=== PATIENT | female | born 1950 | race African-American/Black ===

== ENCOUNTER 2019-10-28 09:22 | Outpatient (CLI) | payer BC, SELFPAY ==
--- NOTE | ~2019-10-28 | MR_ITS ---
EXAMINATION: MR brain/brain stem wo con DATE: 10/28/2019 11:13 INDICATION: 3 weeks of loss of taste and smell. TECHNIQUE: Magnetic resonance imaging (MRI) of the brain and brainstem was performed without intraven ous contrast. Sequences included sagittal and axial T1-weighted SE, axial diffusion-weighted FS SE, a xial T2*-weighted GRE, axial T2-weighted FLAIR, and axial T2-weighted FSE. Apparent diffusion coeffic ient (ADC) maps were created. COMPARISON: None. FINDINGS: There are no areas of restricted diffusion to suggest acute infarction. No intracranial hemorrhage or abnormal intracranial mass lesion. There are scattered areas of nonspecific increased T2-weighted si gnal intensity in the cerebral white matter, predominantly involving the deep and periventricular whi te matter which is within normal limits for age and likely sequela of chronic small vessel ischemic d isease. There are no intraparenchymal signal abnormalities seen on the other pulse sequences. Symmetr ic prominence of the sulci consistent with mild age-appropriate diffuse cerebral volume loss. The ve ntricles are symmetric and normal in size. There are no abnormal extra-axial fluid collections. Flow voids are seen in the cerebral arteries on the T2-weighted sequences consistent with their expected p atency. Moderate mucosal thickening and small amount of dependently layering mucus in the left maxill ya sinus. Mild mucoperiosteal thickening in the right maxillary and bilateral ethmoid and sphenoid s inuses. Visualized orbits and soft tissues are unremarkable. IMPRESSION: 1. No acute intracranial process. 2. Age-related changes including mild diffuse volume loss and mild scattered nonspecific periventricu lar predominant white matter T2 hyperintensity consistent with chronic small vessel ischemic disease. 3. Moderate mucosal thickening and layering mucus in the left maxillary sinus. Correlate clinically f or acute sinusitis. Reviewed, dictated and finalized at location A. IMPRESSION: 1. No acute intracranial process. 2. Age-related changes including mild diffuse volume loss and mild scattered no nspecific periventricular predominant white matter T2 hyperintensity consistent with chronic small vessel ischemic disease. 3. Moderate mucosal thickening and layering mucus in the left maxillary sinus. Correlate clinically for acute sinusitis.
[2019-10-28 10:06] LABS: Estimated Glomerular Filt Rate 20
== END 2019-10-28 09:23 | disposition home or self-care (01) ==
PROVIDERS: PCP Physician Assistant; Visit Provider Otolaryngology
DX: R43.0 Anosmia (principal); J32.0 Chronic maxillary sinusitis
CPT/HCPCS: 36415; 70551

== ENCOUNTER → 2021-05-06 10:47 | Outpatient (CLI) | payer BC, SELFPAY ==
--- NOTE | ~2021-05-06 | MM_ITS ---
EXAMINATION: MM screening yovani BI w adela HISTORY: Screening mammogram TECHNIQUE: Craniocaudal and mediolateral oblique 3-D tomosynthesis images were obtained and synthetic 2-D images were generated. CAD analysis was submitted and interpreted. COMPARISON: 03/26/2019, 07/20/2017, 07/05/2016 bilateral digital screening mammogram examinations. BREAST PARENCHYMAL COMPOSITION: There are scattered areas of fibroglandular density. FINDINGS: 6 mm irregular opacity is noted anteriorly in the outer mid left breast. Diagnostic left ma mmogram and left breast ultrasound examination are recommended. Otherwise there is no evidence of suspicious mass, calcification, or architectural distortion to sugg est malignancy in either breast. There has been no other suspicious interval change. IMPRESSION: 1. 6 mm irregular opacity in the anterior outer mid left breast 2. Diagnostic left mammogram and left breast ultrasound are recommended BI-RADS Category 0: Incomplete: Needs additional imaging evaluation. Reviewed, dictated and finalized at location A.
== END ==
PROVIDERS: PCP Physician Assistant; Visit Provider Physician Assistant
DX: Z12.31 Encounter for screening mammogram for malignant neoplasm of breast (principal); R92.8 Other abnormal and inconclusive findings on diagnostic imaging of breast
CPT/HCPCS: 77063; 77067

== ENCOUNTER → 2021-06-09 08:33 | Outpatient (CLI) | payer BC, SELFPAY ==
--- NOTE | ~2021-06-09 | MMUS_ITS ---
EXAMINATION: MM diagnostic yovani LT w adela, US breast LT limited HISTORY: 6 mm irregular opacity in the anterior outer mid left breast reported on 05/06/2021 screenin g mammogram TECHNIQUE: Additional 3-D tomosynthesis images of the left breast were performed and synthetic 2-D im ages were generated. CAD analysis was submitted and interpreted. High resolution left upper outer and lower outer quadrant breast ultrasound was performed. COMPARISON: 04/28/2021 bilateral screening mammogram FINDINGS: MAMMOGRAPHIC FINDINGS: An irregular approximately 5 mm mass is again noted in the lower outer left breast. ULTRASOUND: Left breast 4:00 4 cm from nipple: There is an irregular hypoechoic approximately 4.5 x 5.2 mm mass w hich corresponds approximately to the mammographic finding. No vascularity is identified within the l esion on color flow imaging. Mild posterior shadowing is suggested. Ultrasound-guided biopsy is recom mended. IMPRESSION: 1. Irregular 5.2 mm mass at 4:00 4 cm from nipple 2. Ultrasound-guided biopsy is recommended BI-RADS category 4, suspicious findings. Dr. Loyola telephoned the report and ultrasound-guided biopsy recommendation on 06/09/20[address] Quiroga. Reviewed, dictated and finalized at location A. MAKING REHABILITATION CONSULTANT IMPRESSION: 1. Irregular 5.2 mm mass at 4:00 4 cm from nipple 2. Ultrasound-guided biopsy is recommended BI-RADS category 4, suspicious findings. Dr. Loyola telephoned the report and ultrasound-guided biopsy recommendation on 08/10/[address] Quiroga.
== END ==
PROVIDERS: PCP Physician Assistant; Visit Provider Physician Assistant
DX: R92.8 Other abnormal and inconclusive findings on diagnostic imaging of breast (principal)
CPT/HCPCS: 76642; 77061; 77065; G0279

== ENCOUNTER 2021-06-24 09:44 | Outpatient (CLI) | payer BC, SELFPAY ==
--- NOTE | ~2021-06-24 | MMUS_ITS ---
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 Timeout procedure was performed. After sterile preparation of the left breas t, 1% lidocaine was utilized for local anesthesia. A 14G spring-loaded biopsy gun needle was advanced to the edge of the region of interest from a later al approach utilizing sonographic guidance. A total of three tissue core samples were obtained throu gh the lesion. An Inrad tissue marker clip was then placed at the biopsy site. Hemostasis was achiev ed. A sterile bandage was applied. The patient tolerated procedure well and there was no evidence of immediate complication. The patien t was given verbal instructions prior to departing from the department. A two view mammogram was perf ormed to document tissue marker clip placement. The tissue samples were submitted to surgical patholo gy for histologic analysis. IMPRESSION: 1. Successful ultrasound guided biopsy of left 4:00 breast mass with biopsy marker placement. Please refer to pathology report for histologic analysis. Reviewed, dictated and finalized at Location A. Reviewed, dictated and finalized at location A. C [employer]ER[employer] IMPRESSION: 1. Successful ultrasound guided biopsy of left 4:00 breast mass with biopsy ma rker placement. Please refer to pathology report for histologic analysis.
== END 2021-06-24 09:45 | disposition home or self-care (01) ==
PROVIDERS: PCP Physician Assistant; Visit Provider Physician Assistant
DX: R92.8 Other abnormal and inconclusive findings on diagnostic imaging of breast (principal)
CPT/HCPCS: 19083; 88305; A4648

== ENCOUNTER 2021-08-26 07:59 | Outpatient (CLI) | payer BC, SELFPAY ==
--- NOTE | 2021-08-26 08:18 | ECG_ITS ---
Measurements Intervals [place] Rate: 89 P: 59 UT: 178 QRS: -41 QRSD: 124 T: 67 QT: 383 QTc: 467 Interpretive Statements SINUS RHYTHM LEFT AXIS DEVIATION INTRAVENTRICULAR CONDUCTION DELAY LEFT VENTRICULAR HYPERTROPHY AND ST-T CHANGE BASELINE ARTIFACT- I, II, III, AVR, AVL, AVF, V1-V2 BORDERLINE ECG Electronically Signed On 08-26-2021 9:02:13 CHEMICAL RESEARCH WORKER by Az Blake D.O.
[2021-08-26 09:02] LABS: Basophils Percent Auto 0.3 % (0.2-1.2); Eosinophils Absolute Auto 0.1 K/mm3 (0-0.3); Eosinophils Percent Auto 2.2 % (0-4.4); Hematocrit 29.3 % (37.0-47.0); Hemoglobin 9.3 g/dL (12.0-15.0); Immature Granulocyte Absolute 0.03 K/mm3 (0.00-0.031); Immature Granulocyte Percent A 0.5 % (0-0.5); Lymphocytes Absolute Auto 1.63 K/mm3 (0.9-3.2); Lymphocytes Percent Auto 27.3 % (18.3-44.2); Mean Corpuscular HGB Conc 31.7 g/dl (32-36); Mean Corpuscular Hemoglobin 26.8 pg (26-34); Mean Corpuscular Volume 84.4 fl (80-100); Mean Platelet Volume 9.4 fl (7.4-10.4); Monocytes Absolute Auto 0.4 K/mm3 (0.1-0.6); Neutrophils Absolute Auto 3.8 K/mm3 (1.3-6.7); Neutrophils Percent Auto 63.7 % (45.5-73.1); Platelet Count Result 209 k/mm3 (150-375); Red Blood Count 3.47 M/mm3 (4.2-5.4); Red Cell Distribution Width 15.4 % (11.5-14.5)
[2021-08-26 09:19] LABS: Anion Gap 10 mmol/L (8-16); Blood Urea Nitrogen 28 mg/dL (7-17); Calcium 8.8 mg/dL (8.4-10.2); Carbon Dioxide 26 mmol/L (22-30); Chloride 103 mmol/L (98-107); Estimated Glomerular Filt Rate 34; Glucose 174 mg/dL (65-110); Potassium 3.1 mmol/L (3.4-5.0); Sodium 139 mmol/L (137-145)
[2021-08-26 12:44] LABS: Anisocytosis 1+ (NORMAL); Hypochromasia 1+ (NORMAL); Platelet Estimate Adequate (Adequate); Poikilocytosis 1+ (NORMAL)
== END 2021-08-26 08:00 | disposition home or self-care (01) ==
PROVIDERS: PCP Physician Assistant; Visit Provider Surgery
DX: D24.2 Benign neoplasm of left breast (principal); E11.9 Type 2 diabetes mellitus without complications; Z01.818 Encounter for other preprocedural examination; I45.9 Conduction disorder, unspecified
CPT/HCPCS: 36415; 80048; 85025; 93005

== ENCOUNTER 2021-08-30 00:33 | Day surgery (SDC) | payer BC, SELFPAY ==
[2021-08-19 14:25] VITALS: BMI 35.0
--- NOTE | 2021-08-19 14:29 | PC.NURSE ---
Report to the Outpatient Waiting Room, entrance under the green pavilion located off [facility], at time _0830_ on date _08/30/21_. NEEDLE LOCALIZATION TIME _0930_, OR Time: _1200__. - You will be asked a series of questions to screen for COVID 19 for your protection. - A mask is required within the hospital. - No visitors are allowed at this time. Preoperative COVID Testing Requirements: NONE Patients may have clear liquids (water, carbonated beverages, clear teas, apple juice) until 3 hours prior to surgery (0900 AM) with a maximum of 20 ounces. - No food from midnight until time of surgery Take the following medications with a SIP of water the morning of surgery: __TYLENOL IF NEED FOR PAIN___ Medications to discontinue per DR. CORTES - _ALLOPURINOL 7 DAYS PRIOR TO SURGERY LAST DOSE TO BE TAKEN ON 08/22/21, MELOXICAM 5 DAYS PRIOR TO SURGERY, LAST DOSE TO BE TAKEN ON 08/24/21__ Please no make-up, nail italian, hairspray, perfume, deodorant, or body powder the day of surgery. No jewelry (including any body piercings) or valuables the day of surgery, leave them at home. Please take a shower or bath the night before, or the morning of, surgery with an antibacterial soap. Wear comfortable, loose fitting clothing. - Jewelry must be removed prior to entering the operating room. Rings and piercings that are not removed may be cut off. - The hospital will not accept responsibility for valuables. - Please leave all valuables, including medications, at home the day of surgery. If you are going home after surgery, a licensed water taxi driver must drive you home. - NO public transportation without another adult. - We recommend that an adult stay with you for 24 hours following discharge. - We also recommend that you do not drive, make important decision, drink alcoholic beverages, or take any drugs that were not prescribed by your health care provider for at least 24 hours after your discharge time. Follow any additional instructions given to you from your surgeon. KIRSTEN SHOWER AM OF SURGERY Telephone instructions given to ____PT and asked if any additional questions and then verbalized understanding. Patient advised to call surgeon office or pre surgery nurse liaisonTUCKER [phone] if any additional questions.
--- NOTE | 2021-08-29 19:15 | PM.HPGS ---
History of Present Illness History of Present Illness Consent: Risks, benefits, and alternatives have been discussed and questions answered. Patient agrees to proceed with procedure. Chief complaint: left breast intraductal papilloma Narrative: Acacia Pires is a 71 year old black female that presented one month ago to the office at the request of Leelee Quiroga PA-C for an evaluation after abnormal breast imaging. Patient had a screening mammogram on 05/06/21 at [facility] that showed a 6 mm irregular opacity in the anterior outer mid left breast BIRAD 0. Patient then had a left breast diagnostic mammogram and ultrasound at [facility] on 06/09/21 that showed an irregular 5.2 mm mass at the 4 O'clock position 4 cm from the nipple. It was rated as a BIRDAS 4 type lesion. Patient then underwent a left breast ultrasound guided core biopsy at [facility] on 06/24/21 that showed this area appeared on path to be consistent with an intraductal papillary proliferation. Patient reports that she cannot feel any mass or abnormality of either of her breasts. She denies any pain or nipple discharge. She does not do self breast exams regularly. She reports that her sister had breast cancer at age 60, had treatment and she is still living. Pt. denies any other family history of breast problems. No breaast problems for her mother. Her mother passed at the age of 43. She herself has given to 3 children children with her first being delivered when she was 17 years old. She reports one of her children is female, she reports no breast issues for her daughter. She does reports she has a history of psoriasis, and she sees a graphic design professor for this . She is unsure of the physicians name. She does also have a history of gout and takes medication for this daily. Review of Systems Review of Systems: All systems reviewed & are unremarkable except as noted in HPI and below (HPI) Constitutional: Constitutional: Reports as per HPI, Denies chills and Denies fever(s) Eyes: Eyes: Reports no additional eye complaints ENT: Reports Normal hearing present and Denies dizziness Cardiovascular: Cardiovascular: Reports no additional cardiovascular complaints, Denies chest pain and Denies irregular heart rhythm Comments: History of Obesity and HTN. Respiratory: Respiratory: Reports no additional respiratory complaints Gastrointestinal: Gastrointestinal: Reports no additional gastrointestinal complaints, Denies abdominal pain and Denies bloating Genitourinary: Genitourinary: Denies hematuria Comments: G3,P3, AB 0 Musculoskeletal: Musculoskeletal: Denies back pain Comments: Hx of gout on Allopurinol history of air thrice taking acetaminophen and Meloxicam. Integumentary/Breasts: Skin/Breast: Reports system reviewed and no additional complaints, except as docu Comments: No previous history of breast biopsy or breast problems. Neurologic: Reports Normal hearing present, Denies Abnormal speech present, Denies confusion and Denies dizziness Psychiatric: Psychiatric: Reports no additional psychiatric complaints and Denies confusion Endocrine: Endocrine: Reports no additional endocrine complaints Comments: History of type 2 diabetes on Glimepiride Hematologic/Lymphatic: Hematologic/Lymphatic: Denies easy bleeding and Denies easy bruising Allergic/Immunologic: Allergic/Immunologic: Reports no additional allergic/immunologic complaints [facility] Past Medical History Medical History (Updated 08/29/21 @ 19:30 by Dennis Patel MD) Asthma Hypertension Type II diabetes mellitus (Unknown) Surgical History Surgical History (Updated 07/28/21 @ 09:33 by Nicolas Rodgers MA) No history of previous surgery Family History Family History (Updated 07/28/21 @ 09:23 by Nicolas Rodgers MA) Father Cancer Mother Heart failure Other Hypertension Social History Social History (Updated 08/30/21 @ 10:35 by Dennis Pinzon
--- NOTE | ~2021-08-30 | MM_ITS ---
MM surgical specimen LT DATE: 08/30/2021 13:33 INDICATION: Surgical excision of left breast biopsy marker TECHNIQUE: Single noncompression digital mammographic exposure of surgical soft tissue specimen COMPARISON: 06/24/2021 left breast postbiopsy mammogram 08/30/2021 left breast preoperative wire localization images FINDINGS: The biopsy marker and wire are present within the surgical soft tissue specimen. IMPRESSION: Successful surgical excision of biopsy marker Reviewed, dictated and finalized at Location A. Reviewed, dictated and finalized at location A. H OPERATOR
--- NOTE | ~2021-08-30 | MM_ITS ---
MM needle loc DATE: 08/30/2021 10:14 INDICATION: Preoperative mammographically guided wire localization of lower outer quadrant left breas t marker TECHNIQUE: The purpose of the procedure, technique and potential complications were discussed with th e patient. The patient indicated understanding and gave consent. The left breast was placed in lateral medial compression with biopsy grid apparatus over the lateral aspect of left breast. Using alpha and numeric cordis on the biopsy grid, a [place] Mammal[facility] 7 cm Was placed percutaneously toward the biopsy marker following sterile preparation of the skin. Additio nal lateral medial exposures were made during adjustment of the needle to the appropriate position. Subsequently, craniocaudal extent both measures were utilized to adjust the needle to the proper dept h. The guidewire was then placed through the tip of the needle. Craniocaudal exposures confirmed prop er position and depth of the wire. The needle was then withdrawn. Final craniocaudal and MLO exposures reveal the wire immediately adjacent to the biopsy marker. The patient tolerated the procedure very well, without complaint or complication. COMPARISON: 06/24/2021 post biopsy mammogram IMPRESSION: Successful mammographically guided percutaneous wire placement at biopsy marker in the lo wer outer left breast Reviewed, dictated and finalized at Location A. Reviewed, dictated and finalized at location A. S REPRESENTATIVE SUPERVISOR IMPRESSION: Successful mammographically guided percutaneous wire placement at b iopsy marker in the lower outer left breast
[2021-08-30 08:36] VITALS: BP 151/71; PULSE 77; RESP 18; TEMP 36.3; O2SAT 99
[2021-08-30 08:50] LABS: Glucose Point of Care 100 mg/dl (65-105)
--- NOTE | 2021-08-30 09:40 | SUR.PREOP ---
PT TO MAMMS AT 0916
[2021-08-30] MEDS: LACTATED RINGERS 1,000 ML 30 ML IV CONT (10:10)
--- NOTE | 2021-08-30 10:18 | SUR.PREOP ---
PT RETURNED FROM [facility] AT 1010
--- NOTE | 2021-08-30 10:30 | P.HPUP_ITS ---
History and Physical Update Update Date/Time: 08/30/21 10:30 History and Physical has been reviewed, including an updated exam of the patient. The patient has been to Radiology and now has a wire localization completed in the lower outer quadrant of the left breast. There are NO other ch anges in the patient's condition. Risks, benefits, and alternatives have been discussed and questions answered. Patient agrees to proceed with procedure.
[2021-08-30] MEDS: KETOROLAC 15 MG/ML VIAL (*BKC) IV PUSH (10:54)
[2021-08-30] MEDS: ACETAMINOPHEN 500 MG TABLET 1000 MG PO (10:54)
--- NOTE | 2021-08-30 11:38 | WPDANESEPPF ---
Anes - Initial Pre Proc Eval Procedure: Operation Date: 08/30/21 12:00 Proposed Procedures p Left Breast Biopsy with Ultrasound and/or Mammogram Guided Needle Localization - Dennis Patel MD Date/Time: 08/30/21 11:38 Surgeon: Dennis Patel MD Pre Op Diagnosis: left breast intraductal papilloma Patient Data Age: 71 Gender: F Height: 1.65 m Weight: 92.4 kg Last Vital Signs Temp 36.3 C L 08/30/21 08:36 Pulse 77 08/30/21 08:36 Resp 18 08/30/21 08:36 BP 151/71 H 08/30/21 08:36 Pulse Ox 99 08/30/21 08:36 Allergies Allergy/AdvReac Type Severity Reaction Status Date / Time No Known Allergies Allergy Verified 08/30/21 08:33 Home Medications Medication Instructions Recorded Confirmed Type meloxicam 7.5 mg PO DAILY #7 tablet 07/06/19 08/30/21 Rx allopurinol 300 mg tablet 300 mg PO DAILY 07/28/21 08/30/21 History glimepiride 1 mg tablet 1 mg PO QAM 07/28/21 08/30/21 History hydrochlorothiazide 25 mg tablet 25 mg PO DAILY 07/28/21 08/30/21 History linagliptin 5 mg tablet 5 mg PO QAM 07/28/21 08/30/21 History losartan 100 mg tablet 100 mg PO DAILY 07/28/21 08/30/21 History acetaminophen [Tylenol Arthritis] 650 mg PO Q12H 08/19/21 08/30/21 History Laboratory Tests 08/30/21 08:46 POC Capillary Glucose 100 mg/dl mg/dl (65-105) Patient hx anesthesia problems: none Family hx anesthesia problems: none Results Review: All pre-operative results and documents have been reviewed as part of the pre-operative evaluation. [facility] Past Medical History Medical History Asthma Hypertension Type II diabetes mellitus (Unknown) Surgical History Surgical History No history of previous surgery Family History Family History Father Cancer Mother Heart failure Other Hypertension Social History Social History Smoking packs per day: 1 Smoking cigarettes per day: 20.0 Years smoked: 30 Smoking pack-years: 30.00 Smoking status: Former smoker Tobacco type: cigarettes Second hand tobacco smoke exposure: No Additional smoking assessment comments: STATES QUIT 2006 Alcohol intake: never Substance use: never Substance use type: does not use Living arrangements: with family Occupation/Education: retired Spiritual care concerns: No Anes - Eval Final PreProcedure Day of Procedure 08/30/21 11:38 Patient weight: obese Heart: regular rate and rhythm Lungs: clear to auscultation Airway: Mallampati scale class II Neurological: alert and oriented Last oral intake: >/= 8 hours ASA classification: III Emergent: no Anesthetic plan: proceed Anesthesia type and monitoring: general LMA and standard monitoring Results Review: All pre-operative results and documents have been reviewed as part of the pre-operative evaluation. Informed Consent: The patient's anesthetic plan and its attendant risks and benefits were discussed with the patient/family/POA. Questions were solicited and answers provided to the satisfaction of the patient/family/POA.
[2021-08-30] MEDS: ceFAZolin 2 GM/D5W 50 ML 2 GM/50 ML BAG IVPB (12:03)
[2021-08-30 13:24] LABS: Glucose Point of Care 87 mg/dl (65-105)
[2021-08-30 13:25] VITALS: BP 139/70; PULSE 86; RESP 16; TEMP 36.3; O2SAT 100
--- NOTE | 2021-08-30 13:27 | W.PM.PROC2 ---
Procedure Note - Detailed Date of Procedure 08/30/21 Pre-op Diagnosis left breast intraductal papilloma Post-op Diagnosis same Procedure Performed Left breast needle localized biopsy Surgeon Dennis Patel MD Shoe Reconditioner Shaina MCCURDY, OR health assistant Anesthesia general Indications Patient had a recent core biopsy of a mammographic Celeste discovered lesion in the left breast. This showed that there was a papillomatous nodule present and recommendation was made by pathology for complete excision. Findings Pretty much normal fatty breast tissue surrounding the area of the wire and clip. Description of Procedure After patient arrived to the preop area at [place] she was prepared and went to Radiology for the needle localization procedure. See that dictated separately by the radiologist. I then saw the patient the preop area and marked her left breast. The localizing wire was in the breast and was taped in position to protect it from getting pulled out. Following this the patient was brought to the operating room and moved from the OR cart to the operative table. Patient was appropriate position and after general anesthesia was induced with an LMA patient's head was turned slightly to the right and the entire left breast was prepped and draped in usual sterile fashion after removing the tape and marker that had been placed over the localizing wire. Right around the wire Betadine was used the rest the breast was prepped with chlorhexidine. The breast was nicely draped off with 4 towels and then drape applied. Once everything was ready we did a time-out confirming patient and side of surgery being the left breast marked with the needle localized wire. I reviewed the mammographic films that were done after right wire placement and planned my surgery/incision. I then carefully outlined a curvilinear transverse incision intersecting the wire extending more laterally than medially from where the wire entered the skin. This was exiting the skin of the breast in the left lower quadrant or lower outer quadrant of the left breast. Following this local anesthetic using 0.5% Marcaine with epinephrine was then instilled along the proposed line of incision. Fifteen blade knife was used to make incision intersecting the wire with about a quarter of the incision medial to the wire and most of it lateral. This we continued down into the breast tissue about 1 cm and then we carefully widened out the excision carefully using retractors we exposed the area of breast be excised. A continued dissecting widely around the marked area by dissecting out into the breast to normal breast tissue and excising a oval-shaped area of breast tissue slightly deep and lateral to the area where the wire entered the skin. The marker was only about 3 cm deep in the breast tissue. I carefully went deep enough in the breast tissue to come under the loop of the wire that was left right next to the clip that had been left when she had her core left breast biopsy in June. Once removing the specimen we marked it with a long suture superior she has new long suture lateral and short suture superior and sent this on a grid to mammography. Following this, while we waited for the report from Radiology, I carefully inspected the inside cavity of the biopsy area and there was no abnormalities I felt both directions and there was no palpable mass within the open incision. Hemostasis was achieved with Bovie cautery further local anesthetic anesthetic was infiltrated into the ball of the biopsy cavity and so subcutaneously in the skin on either side of the incision. Closure was obtained by simply closing the subcu tissues with several interrupted sutures of 3-0 chromic followed by running subcuticular closure of 4-0 1 dyed Monocryl. We waited until we had heard from Radiology before closing the skin and applying surgical glue. Following this we waited approximately 10 minutes and then Mammography called b
[2021-08-30 13:40] VITALS: BP 106/61; PULSE 78; RESP 15; O2SAT 100
[2021-08-30 13:55] VITALS: BP 95/73; PULSE 76; RESP 14; O2SAT 98
[2021-08-30 14:25] VITALS: BP 126/98; PULSE 74; RESP 20
[2021-08-30 14:50] VITALS: BP 146/71; PULSE 68; RESP 16
== END 2021-08-30 15:10 | disposition home or self-care (01) ==
PROVIDERS: PCP Physician Assistant; Visit Provider Surgery
PROC: (CPT 19125; principal; 2021-08-30 12:00)
DX: D24.2 Benign neoplasm of left breast (principal); N60.42 Mammary duct ectasia of left breast; N60.32 Fibrosclerosis of left breast; E11.9 Type 2 diabetes mellitus without complications; I10 Essential (primary) hypertension; Z87.891 Personal history of nicotine dependence; E66.9 Obesity, unspecified; Z68.33 Body mass index [BMI] 33.0-33.9, adult; Z79.84 Long term (current) use of oral hypoglycemic drugs
CPT/HCPCS: 19125; 19281; 76098; 82948; 88307; 88342; A9270; C1769; J0690; J1100; J1885; J2250; J2370; J2405; J2704; J3010; J7120

== ENCOUNTER 2022-03-03 09:53 | Emergency (ER) | payer BC, SELFPAY ==
[2022-03-03] VITALS (18 sets, daily range): BP systolic 129–141; BP diastolic 64–75; PULSE 66–90; RESP 13–23; TEMP 36.2; O2SAT 96–100
--- NOTE | ~2022-03-03 | XR_ITS ---
XR chest 2V 03/03/2022 10:30 Indication: Shortness of breath. Procedure: 2 view chest Comparison: No prior studies for comparison. Findings: Bibasilar airspace disease may represent atelectasis or developing pneumonia. No pleural ef fusion or pneumothorax. No acute osseous abnormality. Impression: 1: Bibasilar airspace disease may represent atelectasis or developing pneumonia. Reviewed, dictated and finalized at location A. Impression: 1: Bibasilar airspace disease may represent atelectasis or developing pneumonia .
--- NOTE | ~2022-03-03 | CT_ITS ---
EXAMINATION: CTA chest PE protocol DATE: 03/03/2022 12:22 INDICATION: Shortness of breath. TECHNIQUE: Computed tomography angiography (CTA) of the chest was performed with 100 mL Omnipaque-350 intravenous contrast timed to evaluate the pulmonary arteries. Coronal maximum intensity projection 3D-reconstructions were created by the technologist. Automated exposure control and iterative reconst ruction technique were employed. The dose-length product was 705.69 mGy-cm. COMPARISON: Chest 2 views 03/03/2022 FINDINGS: The lungs demonstrate mild atelectasis. There is mild emphysema. No pleural effusion. There is a 14 mm nodule in left thyroid lobe, likely not clinically significant. The heart size is normal. There are coronary artery calcifications. No pericardial effusion. There is no pulmonary embolus. Th ere is moderate thoracic spondylosis. IMPRESSION: 1. No pulmonary embolus. 2. Mild emphysema. Reviewed, dictated and finalized at location A.
--- NOTE | 2022-03-03 10:01 | ECG_ITS ---
Measurements Intervals [place] Rate: 84 P: 67 SD: 171 QRS: -42 QRSD: 118 T: 46 QT: 383 QTc: 453 Interpretive Statements SINUS RHYTHM LEFT AXIS DEVIATION INCOMPLETE RIGHT BUNDLE BRANCH BLOCK MINIMAL VOLTAGE CRITERIA FOR LVH, CONSIDER NORMAL VARIANT BORDERLINE ECG COMPARED TO ECG 08/26/2021 08:30:40 INCOMPLETE RIGHT BUNDLE-BRANCH BLOCK NOW PRESENT Electronically Signed On 03-03-2022 15:22:34 CDT by Сергей Duff M.D.
[2022-03-03 10:13] LABS: Basophils Percent Auto 0.5 % (0.2-1.2); Eosinophils Absolute Auto 0.1 K/mm3 (0-0.3); Hematocrit 29.2 % (37.0-47.0); Hemoglobin 9.5 g/dL (12.0-15.0); Immature Granulocyte Absolute 0.03 K/mm3 (0.00-0.031); Immature Granulocyte Percent A 0.5 % (0-0.5); Lymphocytes Absolute Auto 1.96 K/mm3 (0.9-3.2); Lymphocytes Percent Auto 30.8 % (18.3-44.2); Mean Corpuscular HGB Conc 32.5 g/dl (32-36); Mean Corpuscular Hemoglobin 26.8 pg (26-34); Mean Corpuscular Volume 82.3 fl (80-100); Mean Platelet Volume 8.7 fl (7.4-10.4); Monocytes Absolute Auto 0.4 K/mm3 (0.1-0.6); Monocytes Percent Auto 6.8 % (2.6-8.5); Neutrophils Absolute Auto 3.8 K/mm3 (1.3-6.7); Neutrophils Percent Auto 59.4 % (45.5-73.1); Platelet Count Result 217 k/mm3 (150-375); Red Blood Count 3.55 M/mm3 (4.2-5.4); White Blood Count 6.4 K/mm3 (4.5-10.0)
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
[2022-03-03 10:29] LABS: Alanine Aminotransferase 16 U/L (6-35); Albumin Level 4.2 g/dL (3.5-5.1); Alkaline Phosphatase 73 U/L (38-126); Anion Gap 12 mmol/L (8-16); Aspartate Amino Transferase 28 U/L (14-36); Bilirubin,Total 0.2 mg/dL (0.2-1.3); Blood Urea Nitrogen 30 mg/dL (7-17); Calcium 8.8 mg/dL (8.4-10.2); Carbon Dioxide 25 mmol/L (22-30); Chloride 105 mmol/L (98-107); Estimated CRCL calculation 31 ml/min; Estimated Glomerular Filt Rate 36; Glucose 114 mg/dL (65-110); Potassium 3.7 mmol/L (3.4-5.0); Sodium 142 mmol/L (137-145)
[2022-03-03] MEDS: IPRATROPIUM BR 0.02% INH SOLN 0.5 MG/2.5 ML VIAL INHALATION (10:33)
[2022-03-03] MEDS: ALBUTEROL SULFATE NEB 2.5 MG/3 ML INH INHALATION (10:34)
[2022-03-03 10:40] LABS: Troponin I < 0.012 ng/mL (0.000-0.034)
[2022-03-03] MEDS: methylPREDNISolone SOD SUCC 125 MG VIAL IV PUSH (10:45)
[2022-03-03 10:54] LABS: D Dimer 1.06 ug/mL (<0.48)
[2022-03-03 11:01] LABS: NT Pro B Type Natriuretic Pept 79 pg/mL (5-100)
== END 2022-03-03 12:44 | disposition home or self-care (01) ==
PROVIDERS: Emergency Provider Nurse Practitioner Family; PCP Physician Assistant
DX: J45.901 Unspecified asthma with (acute) exacerbation (principal); I10 Essential (primary) hypertension; E11.9 Type 2 diabetes mellitus without complications; Z79.84 Long term (current) use of oral hypoglycemic drugs; Z87.891 Personal history of nicotine dependence
CPT/HCPCS: 36415; 71046; 71275; 80053; 83880; 84484; 85025; 85380; 93005; 94640; 96374; 99284; J2930; Q9967

== ENCOUNTER → 2022-03-31 10:26 | Outpatient (CLI) | payer BC, SELFPAY ==
--- NOTE | ~2022-03-31 | US_ITS ---
EXAMINATION: US thyroid DATE: 03/31/2022 10:47 INDICATION: Thyroid nodule. TECHNIQUE: Multiple ultrasound images of the thyroid were obtained. COMPARISON: None. FINDINGS: The right thyroid lobe measures 4.9 x 3.0 x 2.5 cm. The left thyroid lobe measures 3.7 x 2.5 x 1.8 c m. In the right thyroid lobe, there is a 2.1 cm mixed cystic and solid, hypoechoic, wider than tall nodule with smooth margin without echogenic foci (TI-RADS TR3). In the right thyroid lobe, there is a 1.0 cm mixed cystic and solid, hypoechoic, wider than tall nodule with smooth margin without echogen ic foci (TR3). In the right thyroid lobe, there is a 12 mm mixed cystic and solid, hypoechoic, wider than tall nodule with smooth margin without echogenic foci (TR3). In the left thyroid lobe, there is a 14 mm solid, hypoechoic, wider than tall nodule with ill-defined margin and punctate echogenic foci (TR5). There are multiple subcentimeter nodules in the thyroid. IMPRESSION: 1. Multinodular goiter. Ultrasound-guided fine-needle aspiration of the 14 mm left thyroid nodule is recommended. Reviewed, dictated and finalized at location A. IMPRESSION: 1. Multinodular goiter. Ultrasound-guided fine-needle aspiration of the 14 mm l eft thyroid nodule is recommended.
== END ==
PROVIDERS: PCP Physician Assistant; Visit Provider Physician Assistant
DX: E04.2 Nontoxic multinodular goiter (principal)
CPT/HCPCS: 76536

== ENCOUNTER → 2022-08-08 11:55 | Outpatient (CLI) | payer BC, MEDICARE, SELFPAY ==
--- NOTE | ~2022-08-08 | XR_ITS ---
EXAMINATION: XR thoracic spine 2V DATE: 08/08/2022 12:19 INDICATION: Thoracic back pain TECHNIQUE: AP, lateral and lateral swimmer's views of the thoracic spine were obtained. COMPARISON: None. FINDINGS: Bone alignment is normal. There is no fracture. There is moderate loss of intervertebral di sc space height at multiple levels in the thoracic spine. The vertebral body heights are normal. Smal l degenerative osteophytes project from the anterior endplates of multiple vertebral bodies. IMPRESSION: 1. Moderate thoracic spondylosis without acute findings. Reviewed, dictated and finalized at location B. [address] [facility]
== END ==
PROVIDERS: PCP Physician Assistant; Visit Provider Physician Assistant
DX: M47.814 Spondylosis without myelopathy or radiculopathy, thoracic region (principal)
CPT/HCPCS: 72070

== ENCOUNTER 2022-08-22 12:49 | Outpatient (CLI) | payer BC, MEDICARE, SELFPAY ==
--- NOTE | ~2022-08-22 | US_ITS ---
EXAMINATION: US FNA w image guidance DATE: 08/22/2022 13:40 INDICATION: Left thyroid nodule. TECHNIQUE: The procedure and its benefits and risks were discussed with the patient. Risks specifically discusse d included bleeding. The patient verbalized understanding of the risks and agreed to proceed. The nec k was prepped and draped in the usual sterile manner. 1% lidocaine was used for local anesthesia. 7 passes were made with a 25G needle into the lesion under ultrasound guidance. There were no immedia te complications. FINDINGS: Grayscale ultrasound images demonstrate needles advanced into a 14 mm nodule in left thyroid lobe for biopsy. IMPRESSION: 1. Ultrasound-guided fine needle aspiration of a left thyroid nodule. Reviewed, dictated and finalized at location A. [facility]
== END 2022-08-22 12:50 | disposition home or self-care (01) ==
LOC: ANHIMG 12:55
PROVIDERS: PCP Physician Assistant; Visit Provider Physician Assistant
DX: E04.1 Nontoxic single thyroid nodule (principal)
CPT/HCPCS: 10005; 88173; 88305

== ENCOUNTER 2022-11-09 15:02 | Outpatient (CLI) | payer BC, MEDICARE, SELFPAY ==
--- NOTE | ~2022-11-09 | MM_ITS ---
EXAMINATION: MM screening yovani BI w adela HISTORY: Screening mammogram, family history of breast cancer in her sister. TECHNIQUE: Craniocaudal and mediolateral oblique 3-D tomosynthesis images were obtained and synthetic 2-D images were generated. CAD analysis was submitted and interpreted. COMPARISON: 06/09/2021, 05/06/2021, 11/23/2018 BREAST PARENCHYMAL COMPOSITION: There are scattered areas of fibroglandular density. FINDINGS: No suspicious mass, calcification, or architectural distortion are identified in either rosalia ast to suggest malignancy. There has been no suspicious interval change. IMPRESSION: 1. No mammographic evidence of malignancy. 2. Recommend routine screening mammography in one year. BI-RADS Category 1: Negative Reviewed, dictated and finalized at location A.
== END 2022-11-09 15:03 | disposition home or self-care (01) ==
LOC: ANHIMG 15:03
PROVIDERS: PCP Physician Assistant; Visit Provider Surgery
DX: Z12.31 Encounter for screening mammogram for malignant neoplasm of breast (principal)
CPT/HCPCS: 77063; 77067

== ENCOUNTER → 2023-05-06 09:46 | Outpatient (CLI) | payer BC, MEDICARE, SELFPAY ==
--- NOTE | ~2023-05-06 | US_ITS ---
EXAMINATION: US pelvic complete w TV DATE: 05/06/2023 10:18 INDICATION: Uterine prolapse. TECHNIQUE: Multiple transabdominal and transvaginal sonographic images of the pelvis were obtained. COMPARISON: None. FINDINGS: TRANSABDOMINAL ULTRASOUND: There is no free fluid in the pelvis. TRANSVAGINAL ULTRASOUND: The uterus measures 7.8 x 5.7 x 5.9 cm. There are at least 3 intramural uterine fibroids measuring up to 2.7 cm. There is a The endometrial complex measures 6 mm in thickness. The ovaries are not visual ized. IMPRESSION: 1. Uterine fibroids. Reviewed, dictated and finalized at location E. IMPRESSION: 1. Uterine fibroids.
== END ==
PROVIDERS: PCP Nurse Practitioner Family; Visit Provider Nurse Practitioner Family
DX: D25.1 Intramural leiomyoma of uterus (principal); N81.4 Uterovaginal prolapse, unspecified
CPT/HCPCS: 76830; 76856